=== PATIENT | male | born 1945 | race Caucasian/White ===

== ENCOUNTER 2017-11-17 20:12 | Inpatient (IN) ==
[2017-11-17] MEDS ORDERED: 0.9 % Sodium Chloride 1,000 ML IVC ONE (20:18)
--- NOTE | 2017-11-17 20:26 | Emergency Department Note ---
Disposition Clinical Impression: Diabetic infection of right foot Fever Qualifiers: Fever type: unspecified Qualified Code(s): R50.9 - Fever, unspecified Disposition: Admitted As Inpatient Referrals: Mathieu Myers MD [Primary Care Provider] - Forms: ED Satisfaction Letter Time of Disposition: 00:31 General Adult HPI - General Chief complaint: ED Neuro Symptoms/Deficit Stated complaint: Stroke alert Time Seen by Provider: 11/17/17 20:18 Source: patient, EMS Limitations: no limitations - History of Present Illness HPI Narrative: This is a 72-year-old male brought in by EMS because of confusion and possible episode of slurred speech that began about 4 hours prior to arrival and possible right-sided weakness. On arrival, he appears alert at least name and age, although is confused with more complicated questions. Pain Scale: 0 - Related Data Home Medications Medication Instructions Recorded Confirmed Exenatide [Byetta] 10 mcg SQ BID 02/28/15 11/18/17 Fenofibrate Nanocrystallized 145 mg PO DAILY 02/28/15 11/18/17 [Tricor] Gabapentin [Neurontin] 300 mg PO TID PRN 02/28/15 11/18/17 Insulin ASPART [NovoLOG] 12 unit SQ TIDWM 02/28/15 11/18/17 Insulin Glargine [Lantus] 60 unit SQ HS 02/28/15 11/18/17 Metformin HCl [Glucophage Xr] 1,500 mg PO QPM 02/28/15 11/18/17 Quinapril HCl [Accupril] 20 mg PO DAILY 02/28/15 11/18/17 Oxycodone HCl/Acetaminophen 1 each PO Q4H PRN 06/15/16 11/18/17 [Percocet 5-325 mg Tablet] Allergies Allergy/AdvReac Type Severity Reaction Status Date / Time gentamicin Allergy See Verified 08/01/15 18:43 Comments venom-honey bee Allergy Anaphylaxis Verified 02/02/15 12:19 [bee venom (honey bee)] All systems ED: reviewed and negative except as stated. Neurological: Reports: weakness, confusion, other (Possible dysarthria) Past Medical History - Past Medical History Medical history: Reports: cancer, diabetes Surgical history: Reports: other Psychiatric history: Reports: no psych history - Social History Smoking Status: Never smoker Smokeless Tobacco Status: No Alcohol use: Reports: rarely, occasionally Drug use: Reports: none Physical Exam - General Limitations: no limitations General appearance: alert, in no apparent distress - Head Head exam: atraumatic, normocephalic, normal inspection - Eye Eye exam: Present: normal appearance, PERRL, EOMI. Absent: scleral icterus, conjunctival injection - Neck Neck exam: Present: normal inspection, full ROM - Chest Chest inspection: Present: normal inspection, symmetric chest wall rise - Respiratory Respiratory exam: Present: normal lung sounds bilaterally. Absent: respiratory distress, wheezes, accessory muscle use, prolonged expiratory phase - Cardiovascular Cardiovascular exam: Present: regular rate, normal rhythm, normal heart sounds - Abdominal Exam Abdominal exam: Present: soft, Non-Tender. Absent: tenderness, distention, guarding, rebound, rigidity - Extremities Exam Extremities exam: Present: normal inspection, normal capillary refill. Absent: tenderness, pedal edema - Neurological Exam Neurological exam: Present: alert, CN II-XII intact, motor sensory deficit ( There is strength of 4 out of 5 for plantar and dorsiflexion of the right foot compared to the left at 5 out of 5; there is equal handgrip, and equal strength for flexion extension at the shoulders, elbows, and hips; no facial asymmetry) - Expanded Neurological Exam Patient oriented to: Present: person, place, time Speech: Present: fluid speech. Absent: receptive aphasia, expressive aphasia Cranial nerves: EOM function (II, III, IV, ): Normal, facial sensation (V): Normal, facial palsy (VII): Normal, gag reflex (IX): Normal, spinal accessory function (XI): Normal, tongue deviation (XII): Normal Motor strength - LUE: 5/5 Motor strength - RUE: 5/5 Motor strength - LLE: 5/5 Motor strength - RLE: 4/5 Coma Scale Eye Opening: Spontaneous Coma Scale Motor Response: Obeys Commands Coma Scale Verbal Response: Oriented Coma Scale Total: 15 - Psychiatric Psychiatric exam: Present: normal affect - Skin Skin exam: Present: warm, dry, intact, normal color Course Course Narrative: This is a 9-year-old male with confusion and what may be a new right lower leg weakness but also with a fever of 103.3. Vital Signs Temperature 103.3 F H 11/17/17 20:14 Pulse Rate 94 11/17/17 20:14 Respiratory Rate 18 10/05/18 20:14 Blood Pressure 146/76 11/17/17 20:14 O2 Sat by Pulse Oximetry 95 11/17/17 20:14 Temperature 100.3 F H 11/17/17 23:58 Pulse Rate 86 11/17/17 23:58 Respiratory Rate 16 11/17/17 23:58 Blood Pressure 138/71 11/17/17 23:58 O2 Sat by Pulse Oximetry 95 11/17/17 23:58 Oxygen Delivery Oxygen Delivery Room Air Medical Decision Making - MDM Narrative Medical decision making narrative: This is a 72-year-old male who comes to emergency department with fever and a level of confusion. The confusion has resolved with treatment of his fever. His temperature has dropped from 103.3 down to 100.3. Because of a chronic ulcer at the right ankle, likely a diabetic foot infection, he was started on antimicrobial treatment using vancomycin and piperacillin/tazobactam. I discussed his case with the on-call hospitalist, who accepted him for admission - Lab Data Lab results reviewed: Yes I reviewed the patient's lab results. Lab results narrative: CBC shows leukocytosis at 16.9 with anemia at 11.9 and 35.3 BMP shows slight hyponatremia at 133, albumin slightly elevated at 26 LFT was unremarkable Troponin was low INR was normal at 0.1 Ethanol was low Result diagrams: 11/17/17 20:51 11/17/17 20:51 Lab Results 11/17/17 11/17/17 11/17/17 Range/Units 20:51 20:51 20:51 WBC 16.9 H (4.3-11.1) K/mcL RBC 4.05 L (4.19-5.50) M/mcL Hgb 11.9 L (12.9-16.9) g/dL Hct 35.3 L (37.5-50.1) % MCV 87.2 (83.0-100.0) fL MCH 29.4 (28.0-33.3) pg MCHC 33.7 (31.6-35.5) g/dL RDW 13.2 (11.5-14.5) % Plt Count 237 (140-400) K/mcL MPV 9.4 (9.4-12.4) fL Immature Gran % 0.6 (0-4) % Seg Neutrophils % 89.9 % Lymphocytes % 4.2 % Monocytes % 5.1 % Eosinophils % 0.1 % Basophils % 0.1 % Neutrophils # 15.2 H (1.6-8.9) K/mcL Lymphocytes # 0.7 (0.6-4.6) K/mcL Monocytes # 0.9 (0.0-1.3) K/mcL Eosinophils # 0.0 (0.0-0.6) K/mcL Basophils # 0.0 (0.0-0.2) K/mcL PT 12.9 H (9.4-12.1) Seconds INR 1.1 Sodium 133 L (136-145) mEq/L Potassium 5.0 (3.5-5.1) mEq/L Chloride 100 (98-107) mEq/L Carbon Dioxide 26 (23-29) mEq/L BUN 26 H (8-23) mg/dL Creatinine 1.10 (0.70-1.30) mg/dL Est GFR ( Amer) > 60 (> 60) Est GFR (Non-Af Amer) > 60 (> 60) BUN/Creatinine Ratio 24 (6-26) Glucose 206 H (70-105) mg/dL Calculated Osmolality 287 (280-300) Lactic Acid (0.5-2.2) mmol/L Calcium 9.6 (8.6-10.3) mg/dL Total Bilirubin 0.4 (0.3-1.0) mg/dL Direct Bilirubin 0.1 (0.0-0.2) mg/dL Indirect Bilirubin 0.3 (0.0-1.2) mg/dL AST 12 L (13-39) Units/L ALT 7 (7-52) Units/L Alkaline Phosphatase 57 (34-104) Units/L Troponin I < 0.03 (< 0.04) ng/mL Serum Total Protein 7.6 (6.4-8.9) g/dL Albumin 4.2 (3.5-5.7) g/dL Globulin 3.4 (2.4-3.5) g/dL Albumin/Globulin Ratio 1.2 (1.1-2.2) Urine Color (Yellow) Urine Clarity (Clear) Urine pH (5.0-8.0) pH Units Ur Specific Verner (1.010-1.025) Urine Protein (Neg-Trace) mg/dL Urine Glucose (UA) (Normal) mg/dL Urine Ketones (Negative) mg/dL Urine Blood (Negative) Urine Nitrite (Negative) Urine Bilirubin (Negative) Urine Urobilinogen (Normal) mg/dL Ur Leukocyte Esterase (Negative) Urine Microscopic RBC (0-3) per hpf Urine Microscopic WBC (0-3) per hpf Ur Squamous Epith Cells (None-Few) per lpf Urine Bacteria (None-Few) per hpf Hyaline Casts (None-Few) per lpf Ur Culture Indicated? (NO) Urine Opiates Screen (Enocyz=360) ng/mL Ur Barbiturates Screen (Vuktdh=629) ng/mL Ur Phencyclidine Scrn (Cutoff=25) ng/mL Ur Amphetamines Screen (Vxltkw=7524) ng/mL U Benzodiazepines Scrn (Beedqf=994) ng/mL Urine Cocaine Screen (Cutoff= 300) ng/mL U Marijuana (THC) Screen (Cutoff = 50) ng/mL Ur Drug Screen Interp Ethyl Alcohol < 10 (Less than 10) mg/dL 11/17/17 11/17/17 11/17/17 Range/Units 20:54 22:01 22:04 WBC (4.3-11.1) K/mcL RBC (4.19-5.50) M/mcL Hgb (12.9-16.9) g/dL Hct (37.5-50.1) % MCV (83.0-100.0) fL MCH (28.0-33.3) pg MCHC (31.6-35.5) g/dL RDW (11.5-14.5) % Plt Count (140-400) K/mcL MPV (9.4-12.4) fL Immature Gran % (0-4) % Seg Neutrophils % % Lymphocytes % % Monocytes % % Eosinophils % % Basophils % % Neutrophils # (1.6-8.9) K/mcL Lymphocytes # (0.6-4.6) K/mcL Monocytes # (0.0-1.3) K/mcL Eosinophils # (0.0-0.6) K/mcL Basophils # (0.0-0.2) K/mcL PT (9.4-12.1) Seconds INR Sodium (136-145) mEq/L Potassium (3.5-5.1) mEq/L Chloride (98-107) mEq/L Carbon Dioxide (23-29) mEq/L BUN (8-23) mg/dL Creatinine (0.70-1.30) mg/dL Est GFR ( Amer) (> 60) Est GFR (Non-Af Amer) (> 60) BUN/Creatinine Ratio (6-26) Glucose (70-105) mg/dL Calculated Osmolality (280-300) Lactic Acid 1.1 (0.5-2.2) mmol/L Calcium (8.6-10.3) mg/dL Total Bilirubin (0.3-1.0) mg/dL Direct Bilirubin (0.0-0.2) mg/dL Indirect Bilirubin (0.0-1.2) mg/dL AST (13-39) Units/L ALT (7-52) Units/L Alkaline Phosphatase (34-104) Units/L Troponin I (< 0.04) ng/mL Serum Total Protein (6.4-8.9) g/dL Albumin (3.5-5.7) g/dL Globulin (2.4-3.5) g/dL Albumin/Globulin Ratio (1.1-2.2) Urine Color Yellow (Yellow) Urine Clarity Clear (Clear) Urine pH 7.0 (5.0-8.0) pH Units Ur Specific Verner 1.010 (1.010-1.025) Urine Protein >=300 H (Neg-Trace) mg/dL Urine Glucose (UA) Normal (Normal) mg/dL Urine Ketones Negative (Negative) mg/dL Urine Blood Trace H (Negative) Urine Nitrite Negative (Negative) Urine Bilirubin Negative (Negative) Urine Urobilinogen Normal (Normal) mg/dL Ur Leukocyte Esterase Negative (Negative) Urine Microscopic RBC 5-15 H (0-3) per hpf Urine Microscopic WBC 0-3 (0-3) per hpf Ur Squamous Epith Cells Few (None-Few) per lpf Urine Bacteria None Seen (None-Few) per hpf Hyaline Casts None Seen (None-Few) per lpf Ur Culture Indicated? NO (NO) Urine Opiates Screen Positive H (Pftauf=461) ng/mL Ur Barbiturates Screen Negative (Iqqrkw=506) ng/mL Ur Phencyclidine Scrn Negative (Cutoff=25) ng/mL Ur Amphetamines Screen Negative (Ufxwrn=8837) ng/mL U Benzodiazepines Scrn Negative (Fvoqmf=101) ng/mL Urine Cocaine Screen Negative (Cutoff= 300) ng/mL U Marijuana (THC) Screen Negative (Cutoff = 50) ng/mL Ur Drug Screen Interp See Below Ethyl Alcohol (Less than 10) mg/dL - Radiology Data Radiology results reviewed: Yes I reviewed the patient's radiology results. Chest x-ray showed no acute process CT head showed no acute process CT chest/abdomen/pelvis was obtained to rule out an infectious process there, and was interpreted by radiology as showing none. - EKG Data EKG #1 EKG attestation: Yes I reviewed and interpreted this EKG. EKG results narrative: ECG shows sinus rhythm, 95 bpm, normal intervals, normal axis, right bundle branch block, normal ST and T waves Critical Care Time Critical Care Time: Yes Total Critical Care Time: 20 Attestation: 20 minutes of critical care time was invested independent of other separately billable procedures
[2017-11-17 21:16] LABS: Basophils % 0.1 %; Eosinophils % 0.1 %; Hematocrit 35.3 % (37.5-50.1); Hemoglobin 11.9 g/dL (12.9-16.9); Immature Granulocytes % 0.6 % (0-4); Lymphocytes # 0.7 K/mcL (0.6-4.6); Lymphocytes % 4.2 %; Mean Corpuscular HGB Conc 33.7 g/dL (31.6-35.5); Mean Corpuscular Hemoglobin 29.4 pg (28.0-33.3); Mean Corpuscular Volume 87.2 fL (83.0-100.0); Mean Platelet Volume 9.4 fL (9.4-12.4); Monocytes # 0.9 K/mcL (0.0-1.3); Monocytes % 5.1 %; Neutrophils # 15.2 K/mcL (1.6-8.9); Platelet Count 237 K/mcL (140-400); Red Blood Count 4.05 M/mcL (4.19-5.50); Red Cell Distribution Width 13.2 % (11.5-14.5); Segmented Neutrophils % 89.9 %
[2017-11-17 21:40] LABS: Alanine Aminotransferase 7 Units/L (7-52); Albumin 4.2 g/dL (3.5-5.7); Albumin/Globulin Ratio 1.2 (1.1-2.2); Alkaline Phosphatase 57 Units/L (34-104); Aspartate Amino Transferase 12 Units/L (13-39); BUN/Creatinine Ratio 24 (6-26); Bilirubin,Direct 0.1 mg/dL (0.0-0.2); Bilirubin,Indirect 0.3 mg/dL (0.0-1.2); Bilirubin,Total 0.4 mg/dL (0.3-1.0); Blood Urea Nitrogen 26 mg/dL (8-23); Calcium 9.6 mg/dL (8.6-10.3); Carbon Dioxide 26 mEq/L (23-29); Chloride 100 mEq/L (98-107); Ethanol < 10 mg/dL (Less than 10); Globulin 3.4 g/dL (2.4-3.5); Glucose 206 mg/dL (70-105); INR 1.1; Osmolality,Calculated 287 (280-300); Prothrombin Time 12.9 Seconds (9.4-12.1); Sodium 133 mEq/L (136-145); Total Protein 7.6 g/dL (6.4-8.9); Troponin I < 0.03 ng/mL (< 0.04); eGFR For Non-African Americans > 60 (> 60)
[2017-11-17 22:17] LABS: Bilirubin,Urine Negative (Negative); Blood,Urine Trace (Negative); Clarity,Urine Clear (Clear); Color,Urine Yellow (Yellow); Glucose,Urine (UA) Normal (Normal); Ketones,Urine Negative (Negative); Leukocyte Esterase,Urine Negative (Negative); Nitrite,Urine Negative (Negative); Protein,Urine >=300 mg/dL (Neg-Trace); Urobilinogen,Urine Normal (Normal)
[2017-11-17] MEDS ORDERED: Ketorolac 15 MG/ML VIAL IVP ONE (22:18)
[2017-11-17 22:19] LABS: Bacteria,Urine None Seen per hpf (None-Few); Hyaline Casts,Urine None Seen per lpf (None-Few); Squamous Epithelial Cell,Urine Few per lpf (None-Few); WBC,Urine 0-3 per hpf (0-3)
[2017-11-17 22:25] LABS: Amphetamine Screen,Urine Negative ng/mL (Cutoff=1000); Barbiturate Screen,Urine Negative ng/mL (Cutoff=200); Benzodiazepines Screen,Urine Negative ng/mL (Cutoff=200); Cannabinoid Screen,Urine Negative ng/mL (Cutoff = 50); Cocaine Screen,Urine Negative ng/mL (Cutoff= 300); Opiate Screen,Urine Positive ng/mL (Cutoff=300); Phencyclidine Screen,Urine Negative ng/mL (Cutoff=25)
[2017-11-17] MEDS ORDERED: Piperacillin/Tazobactam 3.375 GM in Water for inj. (sterile) 20 ML 20 ML IVP ONE (22:25)
[2017-11-18] MEDS ORDERED: Naloxone 0.4 MG/ML INJ IVP PRN (02:28)
[2017-11-18] MEDS ORDERED: Acetaminophen 325 MG TABLET PO PRN (02:28)
[2017-11-18] MEDS ORDERED: D5% in Water 1,000 ML IVC PRN (02:32)
[2017-11-18] MEDS ORDERED: Dextrose Gel 15 GM/37.5 ML TUBE PO PRN ×2 (02:32)
[2017-11-18] MEDS ORDERED: *HR* Dextrose 50 % in Water (Syg) 50 ML SYRINGE IVP PRN (02:32)
--- NOTE | 2017-11-18 02:52 | Internal Med History&Physical ---
<Jerry Thomas Cosme - Last Filed: 11/18/17 05:13> Date of Encounter: 11/18/17 Time of Encounter: 02:39 Internal Medicine - H&P: HPI Chief complaint: Altered Mental Status Admitted From: Emergency Dept Plans for Post Hospital Care: Home History of present illness: Mr. El is a 72 year old male with a past medical history of diabetes with chronic foot ulcer and hemangioma. He presented to the ED via EMS from home for altered mental status and fever. His called EMS because he did not know who he was and was slurring his speech. In the ED CT head, chest, and abdomen were negative for acute process. Chest xray was negative for acute process. EKG showed sinus rhythm with right bundle branch block. Labs revealed white count 16 , otherwise benign. Vitals significant for fever 105, other vitals within normal limits. Examination in the emergency department demonstrated minimal focal deficit and orientation labile. Patient was given Tylenol, fluids, vancomycin and Zosyn, blood cultures drawn. Later on my examination patient was neurologically intact without focal deficits and alert and oriented 3 and fever had resolved. Patient denies tobacco, alcohol, drug use. Patient also denies chest pain, shortness of breath, abdominal pain or nausea or vomiting, dysuria. Patient will be admitted for workup of altered mental status and fever. Past Med Surg Social Fam HX - Past Medical History Medical history: cancer, diabetes Additional medical history: emangioma at 17 years old Psychiatric history: no psych history - Past Surgical History Surgical History: other Additional surgical history: wound sx, r-foot at age 17 yrs - Social History Smoking Status: Never smoker Smokeless Tobacco Status: No Alcohol use: rarely, occasionally Drug use: none - Family History Mother Living Status: Hx Family Cancer: Yes (colon) Father Living Status: Internal Medicine - H&P: Meds Exenatide [Byetta] 10 mcg SQ BID 02/28/15 [History] Fenofibrate Nanocrystallized [Tricor] 145 mg PO DAILY 02/28/15 [History] Gabapentin [Neurontin] 300 mg PO TID PRN 02/28/15 [History] Insulin ASPART [NovoLOG] 12 unit SQ TIDWM 02/28/15 [History] Insulin Glargine [Lantus] 60 unit SQ HS 01/16/16 [History] Metformin HCl [Glucophage Xr] 1,500 mg PO QPM 02/28/15 [History] Quinapril HCl [Accupril] 20 mg PO DAILY 02/28/15 [History] Oxycodone HCl/Acetaminophen [Percocet 5-325 mg Tablet] 1 each PO Q4H PRN [History] 3 Allergy/AdvReac Type Severity Reaction Status Date / Time gentamicin Allergy See Verified 08/01/15 18:43 Comments venom-honey bee Allergy Anaphylaxis Verified 02/02/15 12:19 [bee venom (honey bee)] All Systems PM: A 10-system review of systems was performed and is negative for pertinent findings except as documented above in the HPI. - Constitutional Constitutional: fever(s), no chills - EENT Eyes: no change in vision - Cardiovascular Cardiovascular ROS IM: no chest pain, no dyspnea, no syncope - Respiratory Respiratory: no cough, no wheezing, no excessive phlegm production - Gastrointestinal Gastrointestinal: no abdominal pain, no diarrhea, no vomiting - Genitourinary Genitourinary ROS male: urinary incontinence, no dysuria - Musculoskeletal Musculoskeletal ROS IM: no muscle weakness - Integumentary Integumentary IM: non-healing lesions, no new lesions - Neurological Neurological ROS: confusion, focal weakness, headache(s), no abnormal speech - Psychiatric Psychiatric: confusion - Constitutional Vitals: Temp Pulse Resp BP Pulse Ox 100.3 F H 86 18 125/95 95 11/17/17 23:58 11/17/17 23:58 11/18/17 02:07 11/18/17 02:07 11/17/17 23:58 Exam: Patient in no acute distress, alert and oriented 3 Cranial nerves II through XII intact Motor 5 out of 5 in all 4 extremities Sensation intact equally bilaterally except for diminished sensation in the feet Heart in regular rate and rhythm without murmur or gallop Lungs clear to auscultation bilaterally without wheeze or rales or rhonchi Abdomen soft and minimally tender in right upper quadrant, normal bowel sounds present Bilateral lower extremities nonedematous, skin warm and dry There is a nonhealing arterial deficiency versus diabetic ulcer present on the medial aspect of the right hindfoot inferior to the medial malleolus and anterior to the Achilles tendon, measuring approximately 5 cm x 3 cm, without purulent drainage, induration, or surrounding erythema or edema or tenderness Internal Med - H&P Results - Labs CBC & Chem 7: 11/17/17 20:51 11/17/17 20:51 - Assessment and plan (1) Fever Current Visit: Yes Status: Acute Assessment and plan: Patient presented with fever, altered mental status, possible focal deficits CT head negative, CT chest negative, chest x-ray negative, abdominal CT negative EKG showed sinus rhythm normal rate with RBBB White count 16, temp 105, UA negative for infection, UDS noncontributory Patient has 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 Patient was given 1 L fluids, Tylenol, Vancomycin and Zosyn Fever and altered mental status and focal deficits resolved spontaneously Differentials include infected foot ulcer and encephalitis/meningitis Plan Treat foot ulcer/encephalitis empirically with Vancomycin, Rocephin, Acyclovir MRI Brain and Neurology Consult with request for lumbar puncture Continue to monitor for fever or neurological deficits Qualifiers: Fever type: unspecified Qualified Code(s): R50.9 - Fever, unspecified (2) Altered mental status Current Visit: Yes Status: Acute Assessment and plan: Patient was apparently altered before presenting to the emergency department Patient demonstrated complete resolution of altered mental status prior to admission Currently alert and oriented 3 without neurological deficits Rest of plan as seen above Qualifiers: Altered mental status type: disorientation Qualified Code(s): R41.0 - Disorientation, unspecified (3) Diabetes Current Visit: No Status: Chronic Assessment and plan: Patient has manager terminal history of chronic diabetes for which he uses insulin at home We will hold home medications Started 20 units basal insulin at night Low-dose sliding scale insulin corrective protocol Glucose currently stable, glucose checks before meals and at bedtime Continue to monitor Qualifiers: Diabetes mellitus type: type 2 Diabetes mellitus manager terminal insulin use: with manager terminal use Diabetes mellitus complication status: with skin complications Diabetes mellitus complication detail: with foot ulcer Qualified Code(s): E11.621 - Type 2 diabetes mellitus with foot ulcer; L97.509 - Non-pressure chronic ulcer of other part of unspecified foot with unspecified severity; Z79.4 - group home (current) use of insulin (4) DVT prophylaxis Current Visit: No Status: Acute Assessment and plan: This 5000 units subcutaneous heparin every 8 hours (5) Ulcer of foot, chronic Current Visit: Yes Status: Chronic Assessment and plan: Patient has a history of a chronic ulcer of the medial aspect of the right hindfoot on exam the wound does not exhibit significant evidence of infection Because of fever and white count we will empirically treat with vancomycin and Rocephin Rest of plan as seen above Qualifiers: Laterality: right Non-pressure ulcer stage: with fat layer exposed Qualified Code(s): L97.512 - Non-pressure 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 - Time Spent With Patient Total time spent is greater than 50% in coordination of care (as documented) at patient's floor/unit and/or counseling patient: <Javier Arita - Last Filed: 11/18/17 06:19> Date of Encounter: 11/18/17 Time of Encounter: 05:45 - Constitutional Constitutional: fever(s), no chills, no night sweats - EENT Eyes: no blurry vision, no change in vision Ears: no ear pain, no tinnitus Nose, mouth and throat: no nasal congestion, no sinus pressure, no sore throat - Cardiovascular Cardiovascular ROS IM: no chest pain, no dyspnea - Respiratory Respiratory: no cough, no chest congestion, no excessive phlegm production, no change in phlegm color - Gastrointestinal Gastrointestinal: no abdominal pain, no diarrhea, no hematemesis, no hematochezia, no melena, no vomiting - Genitourinary Genitourinary ROS male: no dysuria, no flank pain, no hematuria - Musculoskeletal Musculoskeletal ROS IM: arthralgias, back pain - Integumentary Integumentary IM: non-healing lesions - Neurological Neurological ROS: behavioral changes, confusion, headache(s), no numbness, no paresthesias - Psychiatric Psychiatric: no anxiety, no depression - Endocrine Endocrine IM: no polydipsia, no polyuria - Allergic/Immunologic Allergic/Immunologic: no wheezing, no GI upset with certain foods - Constitutional Vitals: Temp Pulse Resp BP Pulse Ox 98.3 F 67 15 132/78 97 11/18/17 03:05 11/18/17 03:05 11/18/17 03:05 11/18/17 03:05 11/18/17 03:05 General appearance: Present: cooperative, A&O X 3, pleasant, no acute distress Exam: no confusion or disorientation now - Head Head exam: Present: normal inspection - Eye Eye exam: Present: EOMI, PERRL. Absent: scleral icterus Pupils: Present: normal accommodation - ENT ENT exam: Present: mucous membranes dry, normal exam, normal oropharynx Additional comments: no appreciable oral lesions - Neck Neck exam general surgery: Present: full ROM, supple. Absent: tenderness, nuchal rigidity, thyromegaly - Respiratory Respiratory exam: Present: CTAB. Absent: rales, rhonchi, wheezes - Cardiovascular Cardiovascular exam: Present: +S1, +S2. Absent: diastolic murmur, systolic murmur - GI/Abdominal GI/Abdominal exam: Present: normal bowel sounds, soft. Absent: guarding, rebound, tenderness - Back Exam Back exam: Absent: CVA tenderness (L), CVA tenderness (R) - Neurological Exam Neurological exam: Present: alert, CN II-XII intact, oriented X3, no focal deficits, strengths equal and symetr throughout Additional comments: No nuchal rigidity; negative Kernig sign; negative Brudzinski sign Internal Med - H&P Results - Labs CBC & Chem 7: 11/18/17 05:20 11/17/17 20:51 Labs: Short CBC 11/18/17 Range/Units 05:20 WBC 16.7 H (4.3-11.1) K/mcL Hgb 10.6 L (12.9-16.9) g/dL Hct 32.4 L (37.5-50.1) % Plt Count 194 (140-400) K/mcL Neutrophils # 14.7 H (1.6-8.9) K/mcL - Assessment and plan (1) Altered mental status Current Visit: Yes Status: Acute Qualifiers: Altered mental status type: disorientation Qualified Code(s): R41.0 - Disorientation, unspecified (2) Diabetes Current Visit: No Status: Chronic Qualifiers: Diabetes mellitus type: type 2 Diabetes mellitus fpc insulin use: with fpc use Diabetes mellitus complication status: with skin complications Diabetes mellitus complication detail: with foot ulcer Qualified Code(s): E11.621 - Type 2 diabetes mellitus with foot ulcer; L97.509 - Non-pressure chronic ulcer of other part of unspecified foot with unspecified severity; Z79.4 - intermediate project manager (current) use of insulin (3) DVT prophylaxis Current Visit: No Status: Acute (4) Fever Current Visit: Yes Status: Acute Qualifiers: Fever type: unspecified Qualified Code(s): R50.9 - Fever, unspecified (5) Ulcer of foot, chronic Current Visit: Yes Status: Chronic Qualifiers: Laterality: right Non-pressure ulcer stage: with fat layer exposed Qualified Code(s): L97.512 - Non-pressure 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 - Time Spent With Patient Total time spent is greater than 50% in coordination of care (as documented) at patient's floor/unit and/or counseling patient: - Attending Attestation I discussed the patient RED DEVIL, past medical history, review of systems, lab data , imaging findings, and exam findings with Dr. Thomas. I then saw and examined patient independently as well. Patient had a fever up to 105 degrees Fahrenheit associated with behavioral change, altered mental status, confusion, hallucinations, and some reported combativeness in the ER. His fevers have defervesced, and he is back to his baseline state now. He is alert and oriented 3. He does not recall the above behavior but laughs at the fact that he was acting as such. Based upon history and exam, there is no focus for infection. His ulcer does not appear to be infected and appears to be a chronic wound ulcer slowly healing. He denies any neck pain, but he has had some headaches. He also had recent URI/bronchitis over last month. Given his febrile state, altered mental status, headache, and behavioral changes, I worry about encephalitis. He denies any prior history of oral herpes or oral cold sores. Nonetheless, I am going to start him empirically on acyclovir until we can proceed with further workup such as MRI and/or lumbar puncture. We will also ask neurology to see him in consultation. We will also continue empiric antibiotics for now and will follow blood cultures. Clinically, I do not feel he has meningitis whatsoever. Nonetheless, we will treat him with vancomycin and Rocephin to cover such organisms including his prior wound culture organisms from last year. Other than my comments above and noted physical exam findings, I agree with Dr. Thomas's assessment and plan.
[2017-11-18] MEDS ORDERED: Gadolinium Contrast Agent (WT Based) IV PRN (04:27)
[2017-11-18 05:44] LABS: Basophils % 0.1 %; Eosinophils % 0.1 %; Hematocrit 32.4 % (37.5-50.1); Hemoglobin 10.6 g/dL (12.9-16.9); Lymphocytes # 1.1 K/mcL (0.6-4.6); Lymphocytes % 6.4 %; Mean Corpuscular HGB Conc 32.7 g/dL (31.6-35.5); Mean Corpuscular Hemoglobin 28.7 pg (28.0-33.3); Mean Corpuscular Volume 87.8 fL (83.0-100.0); Mean Platelet Volume 9.4 fL (9.4-12.4); Monocytes # 0.8 K/mcL (0.0-1.3); Monocytes % 4.6 %; Neutrophils # 14.7 K/mcL (1.6-8.9); Platelet Count 194 K/mcL (140-400); Red Blood Count 3.69 M/mcL (4.19-5.50); Red Cell Distribution Width 13.2 % (11.5-14.5); Segmented Neutrophils % 87.8 %
[2017-11-18 06:10] LABS: BUN/Creatinine Ratio 23 (6-26); Blood Urea Nitrogen 28 mg/dL (8-23); Calcium 8.6 mg/dL (8.6-10.3); Carbon Dioxide 23 mEq/L (23-29); Chloride 104 mEq/L (98-107); Glucose 194 mg/dL (70-105); Osmolality,Calculated 287 (280-300); Potassium 4.6 mEq/L (3.5-5.1); Sodium 133 mEq/L (136-145); eGFR For Non-African Americans 58 (> 60)
[2017-11-18] MEDS: cefTRIAXone 2,000 MG in Water for inj. (sterile) 20 ML 20 ML IVPB SCH (06:41)
[2017-11-18] MEDS: *HR* Heparin 5,000 UNIT/ML VIAL SQ SCH ×3 (06:55→21:18)
[2017-11-18] MEDS ORDERED: *HR* LORazepam 2 MG/ML VIAL IVP STA (07:43)
[2017-11-18] MEDS ORDERED: Piperacillin/Tazobactam 3.375 GM in 0.9 % Sodium Chloride Mini Bag 100 ML IVPB SCH (08:00)
[2017-11-18] MEDS: Insulin LISPRO 300 UNITS/3 ML VIAL SQ SCH ×3 (08:13→16:19)
[2017-11-18] MEDS: Acyclovir 750 MG in D5% in Water 250 ML IVPB SCH ×2 (09:45→16:18)
--- NOTE | 2017-11-18 14:42 | Internal Med Progress Note ---
Hospitalist Progress Note - Encounter Date of Encounter: 11/18/17 Time of Encounter: 14:41 - Subjective Interval History: Patient stated that he is feeling back to his normal, patient is alert oriented 3, patient denies any neck stiffness, patient denies any motor or sensory changes. Patient denies any fever or chills since yesterday - Exam Vitals: Temp Pulse Resp BP Pulse Ox 98.8 F 65 18 121/58 98 11/18/17 11:36 11/18/17 11:36 11/18/17 11:36 11/18/17 11:36 11/18/17 11:36 Exam: Alert oriented 3, cranial nerves II-12 grossly intact no motor or sensory deficit - Assessment and Plan (1) Altered mental status Current Visit: Yes Status: Acute (2) Diabetes Current Visit: No Status: Chronic (3) DVT prophylaxis Current Visit: No Status: Acute (4) Fever Current Visit: Yes Status: Acute (5) Ulcer of foot, chronic Current Visit: Yes Status: Chronic - Summary of Assessment and Plan Summary of Assessment and Plan: Discussed with podiatry team, with the patient history of osteomyelitis in the past, we will check x-ray ankle and leg, continue current antibiotic, awaiting blood culture and wound culture, check CBC BMP next a.m., adjust insulin as needed, PTOT, MRI brain reviewed no evidence of CVA. CT scan chest abdomen and pelvis revealed no evidence of infection - Time Spent with Patient Total time spent is greater than 50% in coordination of care (as documented) at patient's floor/unit and/or counseling patient: Greater than 35 minutes Internal Medicine: Result - Labs CBC & Chem 7: 11/18/17 05:20 11/18/17 05:20 Labs: Short CBC 11/18/17 Range/Units 05:20 WBC 16.7 H (4.3-11.1) K/mcL Hgb 10.6 L (12.9-16.9) g/dL Hct 32.4 L (37.5-50.1) % Plt Count 194 (140-400) K/mcL Neutrophils # 14.7 H (1.6-8.9) K/mcL BMP 11/18/17 05:20 Sodium 133 L Potassium 4.6 Chloride 104 Carbon Dioxide 23 BUN 28 H Creatinine 1.23 Glucose 194 H Calcium 8.6 - ABG Interpretation ABG results: PT/INR, D-dimer PT 12.9 Seconds (9.4-12.1) H 11/17/17 20:51 - Impressions Impressions Brain MRI 11/18/17 05:45 IMPRESSION: No acute intracranial abnormality. Moderate cerebral white matter disease, progressed from 2016. D/ / Jarod Gardner MD / Jarod Gardner MD Interpreting Provider: Jarod Gardner MD Consult Discharge Plan - Plan Referrals: Mathieu Myers MD [Primary Care Provider] - Exam - Vital Signs Vital signs: Initial Vital Signs Temp Pulse Resp BP Pulse Ox 103.3 F H 94 18 146/76 95 11/17/17 20:14 11/17/17 20:14 11/17/17 20:14 11/17/17 20:14 11/17/17 20:14 Vital Signs - Last 8 Hours Temp Pulse Resp BP Pulse Ox 11/18/17 11:36 98.8 F 65 18 121/58 98 11/18/17 07:30 98.2 F 62 16 176/91 97 Intake and Output 11/17/17 11/18/17 11/18/17 23:59 07:59 15:59 Intake Total 500 / 500 265 / 265 Balance 500 / 500 265 / 265 Intake: IV Fluids 500 / 500 265 / 265 Zovirax 750 MG In Dextrose 5% 265 / 265 250 ML @ 250 mls/hr IVPB Q8HR [facility] Rx#:[id number] Vancocin 1,750 MG In 0.9 % 500 / 500 Sodium Chloride 500 ML @ 334. 014 mls/hr IVPB ONCE ONE Rx#: [id number] Other: Weight 111.3 kg Blood Glucose* 150 194 Patient Weight 11/18/17 23:59 Weight 111.3 kg EENT: mucous membranes moist Neck: no JVD, supple Respiratory: clear Cardiology: no murmurs, no rub, no gallops, normal S1, normal S2 Gastrointestinal: normoactive bowel sounds, no tenderness, no guarding, no organomegaly, no masses Integumentary: ulcer (Right dao of tibia) Neurologic: no focal deficit, no asterixis, alert and oriented x3, CN 3-12 intact Musculoskeletal: no erythema, no cyanosis, no clubbing (1) Altered mental status Qualifiers: Altered mental status type: disorientation Qualified Code(s): R41.0 - Disorientation, unspecified (2) Diabetes Qualifiers: Diabetes mellitus type: type 2 Diabetes mellitus termite treater insulin use: with termite treater use Diabetes mellitus complication status: with skin complications Diabetes mellitus complication detail: with foot ulcer Qualified Code(s): E11.621 - Type 2 diabetes mellitus with foot ulcer; L97.509 - Non-pressure chronic ulcer of other part of unspecified foot with unspecified severity; Z79.4 - care home (current) use of insulin (4) Fever Qualifiers: Fever type: unspecified Qualified Code(s): R50.9 - Fever, unspecified (5) Ulcer of foot, chronic Qualifiers: Laterality: right Non-pressure ulcer stage: with fat layer exposed Qualified Code(s): L97.512 - Non-pressure 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
--- NOTE | 2017-11-18 16:53 | Neurology - Consult Note ---
Date of Encounter: 11/18/17 Time of Encounter: 16:47 Assessment and Plan (1) Altered mental status Current Visit: Yes Status: Acute Patient presents with altered mental status that is now resolved. Upon admission he did have a temp of 105 and remained confused for about 3 hours or so. This confusion has now resolved and he is alert and oriented and is been talking on the phone to family members and friends. His blood pressure was also elevated so we could be dealing with something multifactorial. I am not however convinced of any specific primary neurologic etiology that explains this. There is no evidence of acute transient ischemic attack, and there is no evidence of a central nervous system infectious process. I recommend discontinuing acyclovir. No evidence to suspect seizure. Will reevaluate at your request. Qualifiers: Altered mental status type: disorientation Qualified Code(s): R41.0 - Disorientation, unspecified History of Present Illness HPI: Mr. El is a 72 year old male who was seen for neurologic consultation at the request of the hospitalist group secondary to brief moment of confusion. Patient now does not recall anything about it. However his identified some change in his mental status he was slurring his speech and was concerned and called EMS who brought him here to the hospital. Apparently upon arrival he had a fever and did have some confusion. Resolved. He has temporal 105 and did have an elevated white count at 16. However currently he is back to his normal baseline mental status. He denies any headache denies any numbness tingling or weakness of the face arms or legs. He denied headache. Denied any speech changes. Denies neck pain or stiffness. There is no evidence that he had evidence of seizure activity. There is no evidence to suggest stroke. MRI scan of the brain was done acutely and revealed no evidence of acute intracranial abnormality. Past Med Surg Social Fam HX - Past Medical History Medical history: cancer, diabetes Additional medical history: emangioma at 17 years old Psychiatric history: no psych history - Past Surgical History Surgical History: other Additional surgical history: wound sx, r-foot at age 17 yrs - Social History Smoking Status: Never smoker Smokeless Tobacco Status: No Alcohol use: rarely, occasionally Drug use: none - Family History Mother Age: 78 Family Member Ethnicity: Non- Living Status: Cause of : renal cancer Hx Family Cancer: Yes (colon) Father Family Member Ethnicity: Non- Living Status: Age at : 70 Cause of : chf Hx Family Cardiac Disorders: Yes (5xcabg, chf) Medications and Allergies Exenatide [Byetta] 10 mcg SQ BID 02/28/15 [History] Fenofibrate Nanocrystallized [Tricor] 145 mg PO DAILY 02/28/15 [History] Gabapentin [Neurontin] 300 mg PO TID PRN 02/28/15 [History] Insulin ASPART [NovoLOG] 12 unit SQ TIDWM 02/28/15 [History] Insulin Glargine [Lantus] 60 unit SQ HS 02/28/15 [History] Metformin HCl [Glucophage Xr] 1,500 mg PO QPM 02/28/15 [History] Quinapril HCl [Accupril] 20 mg PO DAILY 02/28/15 [History] Oxycodone HCl/Acetaminophen [Percocet 5-325 mg Tablet] 1 each PO Q4H PRN [History] 3 Allergy/AdvReac Type Severity Reaction Status Date / Time gentamicin Allergy See Verified 08/01/15 18:43 Comments venom-honey bee Allergy Anaphylaxis Verified 02/02/15 12:19 [bee venom (honey bee)] All Systems: The remainder of the systems were reviewed and are negative Review of Systems: The balance of the systems review is negative. Physical Examination - Vital Signs Vital Signs: Initial Vital Signs Temp Pulse Resp BP Pulse Ox 103.3 F H 94 18 146/76 95 11/17/17 20:14 11/17/17 20:14 11/17/17 20:14 11/17/17 20:14 11/17/17 20:14 - Neurologic Motor examination - right side: 3/5: plantarflexion, 4/5: tibialis Anterior, toe extension (EHL), 5/5: deltoids, biceps, triceps, cycle touring guide, hip flexors, quadriceps Motor examination - left side: 5/5: deltoids, biceps, triceps, wrist flexion, wrist extension, hip flexors, cycle touring guide, quadriceps, tibialis Anterior, toe extension (EHL), plantarflexion Detailed sensory examination: other (Decreased sensation to pinprick distally) Reflex and gait examination: other (Deep tendon reflexes are diminished throughout.) Mental Status Examination: awake, alert, oriented to person, oriented to place, oriented to time, follows commands appropriately, answers questions appropriately, no agnosia, no aphasia, no aproxia Cranial nerve examination: PERRL, EOMI, visual townsend intact, corneal reflexes brisk symmetrically, sensory to face intact, mastication intact, no facial asymmetry is present, no dysarthria, hearing is intact symmetrically, soft palate elevates bilaterally upon phonation, gag reflex intact, flexes SCM and trapezius muscles symmetrically with full power, tongue protrudes midline, no atrophy or facial fasiculations present Cerebellar examination: no dysmetria Results - Laboratory Findings CBC and BMP: 11/18/17 05:20 11/18/17 05:20 Abnormal lab findings: Abnormal lab results WBC 16.7 K/mcL (4.3-11.1) H 11/18/17 05:20 RBC 3.69 M/mcL (4.19-5.50) L 11/18/17 05:20 Hgb 10.6 g/dL (12.9-16.9) L 11/18/17 05:20 Hct 32.4 % (37.5-50.1) L 11/18/17 05:20 Neutrophils # 14.7 K/mcL (1.6-8.9) H 11/18/17 05:20 PT 12.9 Seconds (9.4-12.1) H 11/17/17 20:51 Sodium 133 mEq/L (136-145) L 11/18/17 05:20 BUN 28 mg/dL (8-23) H 11/18/17 05:20 Est GFR (Non-Af Amer) 58 (> 60) L 11/18/17 05:20 Glucose 194 mg/dL (70-105) H 11/18/17 05:20 POC Glucose 227 mg/dL (70-99) H 11/17/17 20:15 AST 12 Units/L (13-39) L 11/17/17 20:51 Urine Protein >=300 mg/dL (Neg-Trace) H 11/17/17 22:01 Urine Blood Trace (Negative) H 11/17/17 22:01 Urine Microscopic RBC 5-15 per hpf (0-3) H 11/17/17 22:01 Urine Opiates Screen Positive ng/mL (Mnclvx=204) H 11/17/17 22:04 Consult Discharge Plan - Plan Referrals: Mathieu Myers MD [Primary Care Provider] -
[2017-11-18 17:24] LABS: Adenovirus Not Detected (Not Detect); Bordetella Pertussis Not Detected (Not Detect); Chlamydophila pneumoniae Not Detected (Not Detect); Coronavirus 229E Not Detected (Not Detect); Coronavirus HKU1 Not Detected (Not Detect); Coronavirus NL63 Not Detected (Not Detect); Coronavirus OC43 Not Detected (Not Detect); Human Metapneumovirus Not Detected (Not Detect); Human Rhinovirus/Enterovirus Not Detected (Not Detect); Influenza A Subtype 2009 H1 Not Detected (Not Detect); Influenza A Untypeable Not Detected (Not Detect); Influenza B Not Detected (Not Detect); Mycoplasma pneumoniae Not Detected (Not Detect); Parainfluenza Virus 1 Not Detected (Not Detect); Parainfluenza Virus 2 Not Detected (Not Detect); Parainfluenza Virus 3 Not Detected (Not Detect); Parainfluenza Virus 4 Not Detected (Not Detect); Respiratory Syncytial Virus Not Detected (Not Detect)
[2017-11-18] MEDS ORDERED: Insulin DETEMIR 100 UNIT/ML X5UNITS SQ SCH ×2 (21:00)
[2017-11-18] MEDS: Insulin DETEMIR 100 UNIT/ML X5UNITS SQ SCH (21:19)
[2017-11-19] MEDS: Acyclovir 750 MG in D5% in Water 250 ML IVPB SCH ×2 (00:10→08:57)
[2017-11-19] MEDS: cefTRIAXone 2,000 MG in Water for inj. (sterile) 20 ML 20 ML IVPB SCH (04:37)
[2017-11-19] MEDS: *HR* Heparin 5,000 UNIT/ML VIAL SQ SCH ×3 (04:38→21:32)
[2017-11-19] MEDS: Insulin DETEMIR 100 UNIT/ML X5UNITS SQ SCH ×3 (08:56→21:31)
[2017-11-19] MEDS: Insulin LISPRO 300 UNITS/3 ML VIAL SQ SCH ×3 (08:57→16:36)
--- NOTE | 2017-11-19 09:17 | Podiatry Consult Note ---
Date of Encounter: 11/19/17 Time of Encounter: 09:13 Assessment and Plan (1) Ulcer of foot, chronic Current visit: Yes Status: Chronic Patient with chronic ulcer of the right ankle. This is likely venous in nature. It appears stable. Leukocytosis and fevers could represent soft tissue or bone infection. ESR and CRP ordered today. Radiographs reviewed which showed no evidence of osteomyelitis. If WBC does not improve on IV antibiotics , we will consider MRI of the right ankle to evaluate for any evidence of deep infection. Continue with local wound care and IV antibiotics for now. Patient would prefer to follow up with Dr. Wyman in wound care center for routine local wound care until was planned skin graft with plastic surgery. Qualifiers: Laterality: right Non-pressure ulcer stage: with fat layer exposed Qualified Code(s): L97.512 - Non-pressure 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 History of Present Illness Chief complaint: ulcer HPI: Mr. El is a 72 year old male presenting with chronic right ankle ulceration. Patient reports that he has a five-year history of ulceration of the ankle that has been treated with local wound care at several institutions including [place], [facility], and in [place]. During his course of treatment, he states that he has been treated with 6 weeks of IV antibiotics for suspected bone infection. Patient reports that he has a scheduled appointment [facility] plastic surgery in the near future to discuss skin graft options for the chronic right ankle wound. He has been doing local wound care with hydrofera blue and believes the wound is stable. He reports that the mild redness around the wound is due to adhesives from the tape dressing he was putting on the wound. He denies nausea, vomiting, chills. He does report fevers. He is unsure what prompted his admission. He would still like to continue his plans of doing a skin graft, however, he would like to see Dr. Wyman wound care until his planned surgery. Past Med Surg Social Fam HX - Past Medical History Medical history: cancer, diabetes Additional medical history: emangioma at 17 years old Psychiatric history: no psych history - Past Surgical History Surgical History: other Additional surgical history: wound sx, r-foot at age 17 yrs - Social History Smoking Status: Never smoker Smokeless Tobacco Status: No Alcohol use: rarely, occasionally Drug use: none - Family History Mother Age: 78 Family Member Ethnicity: Non- Living Status: Cause of : renal cancer Hx Family Cancer: Yes (colon) Father Family Member Ethnicity: Non- Living Status: Age at : 72 Cause of : chf Hx Family Cardiac Disorders: Yes (5xcabg, chf) Medications and Allergies Exenatide [Byetta] 10 mcg SQ BID 02/28/15 [History] Fenofibrate Nanocrystallized [Tricor] 145 mg PO DAILY 02/28/15 [History] Gabapentin [Neurontin] 300 mg PO TID PRN 02/28/15 [History] Insulin ASPART [NovoLOG] 12 unit SQ TIDWM 02/28/15 [History] Insulin Glargine [Lantus] 60 unit SQ HS 02/28/15 [History] Metformin HCl [Glucophage Xr] 1,500 mg PO QPM 02/28/15 [History] Quinapril HCl [Accupril] 20 mg PO DAILY 02/28/15 [History] Oxycodone HCl/Acetaminophen [Percocet 5-325 mg Tablet] 1 each PO Q4H PRN [History] 3 Allergy/AdvReac Type Severity Reaction Status Date / Time gentamicin Allergy See Verified 08/01/15 18:43 Comments venom-honey bee Allergy Anaphylaxis Verified 02/02/15 12:19 [bee venom (honey bee)] All Systems Reviewed: The remainder of the systems were reviewed and are negative Physical Exam - Constitutional Vitals: Temp Pulse Resp BP Pulse Ox 97.9 F 60 15 172/78 95 11/19/17 07:52 11/19/17 07:52 11/19/17 07:52 11/19/17 07:52 11/19/17 07:52 Exam: Vascular: DP and PT 1+ bilateral. Capillary refill less than 3 seconds all digits. Skin temperature normal to the right ankle. Dermatology: Right medial ankle ulceration with mixed fibrotic and granular wound base. There is a hyperkeratotic rim. Mild erythema at the periwound skin but does not extend proximally. No tendon visible in the wound base. Wound does not probe to bone. There is mild serous drainage from the wound. Wound measurement 6.5cm 3.0cm x 0.2cm. Musculoskeletal: No gross osseous abnormality. Muscle strength normal. Neuro: Sensation grossly diminished bilateral. Results - Labs Result Diagrams: 10/06/18 05:20 11/18/17 05:20 Labs: Abnormal lab results WBC 16.7 K/mcL (4.3-11.1) H 11/18/17 05:20 RBC 3.69 M/mcL (4.19-5.50) L 11/18/17 05:20 Hgb 10.6 g/dL (12.9-16.9) L 11/18/17 05:20 Hct 32.4 % (37.5-50.1) L 11/18/17 05:20 Neutrophils # 14.7 K/mcL (1.6-8.9) H 11/18/17 05:20 PT 12.9 Seconds (9.4-12.1) H 11/17/17 20:51 Sodium 133 mEq/L (136-145) L 11/18/17 05:20 BUN 28 mg/dL (8-23) H 11/18/17 05:20 Est GFR (Non-Af Amer) 58 (> 60) L 11/18/17 05:20 Glucose 194 mg/dL (70-105) H 11/18/17 05:20 POC Glucose 150 mg/dL (70-99) H 11/18/17 07:36 AST 12 Units/L (13-39) L 11/17/17 20:51 Urine Protein >=300 mg/dL (Neg-Trace) H 11/17/17 22:01 Urine Blood Trace (Negative) H 11/17/17 22:01 Urine Microscopic RBC 5-15 per hpf (0-3) H 11/17/17 22:01 Urine Opiates Screen Positive ng/mL (Ogizrz=700) H 11/17/17 22:04 All other labs normal. Consult Discharge Plan - Plan Referrals: Mathieu Myers MD [Primary Care Provider] -
[2017-11-19 09:27] LABS: Basophils % 0.2 %; Eosinophils # 0.2 K/mcL (0.0-0.6); Eosinophils % 2.7 %; Hematocrit 32.5 % (37.5-50.1); Hemoglobin 10.9 g/dL (12.9-16.9); Immature Granulocytes % 0.5 % (0-4); Lymphocytes # 1.1 K/mcL (0.6-4.6); Mean Corpuscular HGB Conc 33.5 g/dL (31.6-35.5); Mean Corpuscular Hemoglobin 29.2 pg (28.0-33.3); Mean Corpuscular Volume 87.1 fL (83.0-100.0); Mean Platelet Volume 9.3 fL (9.4-12.4); Monocytes # 0.6 K/mcL (0.0-1.3); Monocytes % 9.6 %; Neutrophils # 4.7 K/mcL (1.6-8.9); Platelet Count 179 K/mcL (140-400); Red Blood Count 3.73 M/mcL (4.19-5.50); Red Cell Distribution Width 13.3 % (11.5-14.5)
[2017-11-19 09:54] LABS: BUN/Creatinine Ratio 20 (6-26); Blood Urea Nitrogen 20 mg/dL (8-23); C-Reactive Protein 105 mg/L (Less than 10); Calcium 8.6 mg/dL (8.6-10.3); Carbon Dioxide 22 mEq/L (23-29); Chloride 106 mEq/L (98-107); Glucose 272 mg/dL (70-105); Magnesium 1.7 mg/dL (1.6-2.6); Osmolality,Calculated 292 (280-300); Phosphorous 2.6 mg/dL (2.7-4.5); Potassium 4.3 mEq/L (3.5-5.1); Sodium 135 mEq/L (136-145); eGFR For Non-African Americans > 60 (> 60)
--- NOTE | 2017-11-19 13:42 | Internal Med Progress Note ---
Hospitalist Progress Note - Encounter Date of Encounter: 11/19/17 Time of Encounter: 11:40 - Subjective Interval History: Patient feels better, patient denies any cough, patient denies any dysuria or hematuria, patient denies any bowel movement since admission, patient denies any fever or chills, patient denies any confusion or headache, - Exam Vitals: Temp Pulse Resp BP Pulse Ox 98.1 F 64 15 148/69 96 11/19/17 11:58 11/19/17 11:58 11/19/17 11:58 11/19/17 11:58 11/19/17 11:58 Exam: Alert oriented 3, cranial nerves II-12 grossly intact no motor or sensory deficit at baseline - Assessment and Plan (1) Altered mental status Current Visit: Yes Status: Acute (2) Diabetes Current Visit: No Status: Chronic (3) DVT prophylaxis Current Visit: No Status: Acute (4) Fever Current Visit: Yes Status: Acute (5) Ulcer of foot, chronic Current Visit: Yes Status: Chronic - Summary of Assessment and Plan Summary of Assessment and Plan: We will increase that insulin dosing, no evidence of encephalitis or meningitis , possible metabolic encephalopathy, awaiting final results of the blood culture , we will discontinue cycle failure monitor for next 24-hour, continue vancomycin and ceftriaxone.. If patient continued to be afebrile and his blood culture is negative possible discharge in next 24-hour. May consider discharging patient on Augmentin, check MRSA screening, replace electrolytes, check CBC BMP next morning, ambulate counseling patient about ambulation waiting for his cane - Time Spent with Patient Total time spent is greater than 50% in coordination of care (as documented) at patient's floor/unit and/or counseling patient: Greater than 35 minutes Internal Medicine: Result - Labs CBC & Chem 7: 11/19/17 09:11 11/19/17 09:11 Labs: Short CBC 11/19/17 Range/Units 09:11 WBC 6.6 D (4.3-11.1) K/mcL Hgb 10.9 L (12.9-16.9) g/dL Hct 32.5 L (37.5-50.1) % Plt Count 179 (140-400) K/mcL Neutrophils # 4.7 (1.6-8.9) K/mcL BMP 11/19/17 09:11 Sodium 135 L Potassium 4.3 Chloride 106 Carbon Dioxide 22 L BUN 20 Creatinine 0.99 Glucose 272 H Calcium 8.6 - ABG Interpretation ABG results: PT/INR, D-dimer PT 12.9 Seconds (9.4-12.1) H 11/17/17 20:51 Consult Discharge Plan - Plan Referrals: Mathieu Myers MD [Primary Care Provider] - Exam - Vital Signs Vital signs: Initial Vital Signs Temp Pulse Resp BP Pulse Ox 103.3 F H 94 18 146/76 95 11/17/17 20:14 11/17/17 20:14 11/17/17 20:14 11/17/17 20:14 11/17/17 20:14 Vital Signs - Last 8 Hours Temp Pulse Resp BP Pulse Ox 11/19/17 11:58 98.1 F 64 15 148/69 96 11/19/17 07:52 97.9 F 60 15 172/78 95 Intake and Output 11/18/17 11/19/17 11/19/17 23:59 07:59 15:59 Intake Total 1025 / 1025 500 / 500 860 / 860 Output Total 1000 / 1000 500 / 500 1350 / 1350 Balance 25 / 25 0 / 0 -490 / -490 Intake: IV Fluids 785 / 785 500 / 500 Zovirax 750 MG In Dextrose 5% 265 / 265 250 / 250 250 ML @ 250 mls/hr IVPB Q8HR [facility] Rx#:[id number] Vancocin 1,250 MG In 0.9 % 250 / 250 Sodium Chloride 250 ML @ 166. 667 mls/hr IVPB Q12H [facility] Rx#: [id number] Vancocin 1,750 MG In 0.9 % 500 / 500 Sodium Chloride 500 ML @ 334. 014 mls/hr IVPB 1100 [facility] Rx#: [id number] Rocephin 2,000 MG In Water for 20 / 20 inj. (sterile) 20 ML @ 600 mls/ hr IVPB Q24H [facility] Rx#:[id number] Oral 240 / 240 0 / 0 860 / 860 Output: Urine 1000 / 1000 500 / 500 1350 / 1350 Other: Meal Dinner Lunch Percent of Meal Consumed 100% 100% # Urine Diapers 1 2 Weight 111.5 kg Blood Glucose* 163 148 230 Patient Weight 11/19/17 23:59 Weight 111.5 kg - General Appearance General appearance: well-developed, well-nourished, obese EENT: mucous membranes moist, hearing intact Neck: no JVD, no thyromegaly Respiratory: clear Cardiology: mid-systolic murmur, no rub, no gallops, no edema, regular rate, regular rhythm, normal S1, normal S2 Gastrointestinal: no tenderness, no guarding, no organomegaly, obese Integumentary: warm and dry (Chronic ulcer right ankle medially) Neurologic: no focal deficit, no asterixis, alert and oriented x3, reflexes 2+ and symmetric, gait normal, strength 5/5 Musculoskeletal: no deformities, no erythema, no cyanosis, no clubbing (1) Altered mental status Qualifiers: Altered mental status type: disorientation Qualified Code(s): R41.0 - Disorientation, unspecified (2) Diabetes Qualifiers: Diabetes mellitus type: type 2 Diabetes mellitus manager intermediate insulin use: with manager intermediate use Diabetes mellitus complication status: with skin complications Diabetes mellitus complication detail: with foot ulcer Qualified Code(s): E11.621 - Type 2 diabetes mellitus with foot ulcer; L97.509 - Non-pressure chronic ulcer of other part of unspecified foot with unspecified severity; Z79.4 - manager intermediate (current) use of insulin (4) Fever Qualifiers: Fever type: unspecified Qualified Code(s): R50.9 - Fever, unspecified (5) Ulcer of foot, chronic Qualifiers: Laterality: right Non-pressure ulcer stage: with fat layer exposed Qualified Code(s): L97.512 - Non-pressure 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
[2017-11-20] MEDS ORDERED: Gabapentin 300 MG CAPSULE PO PRN (00:03)
[2017-11-20] MEDS: *HR* Heparin 5,000 UNIT/ML VIAL SQ SCH ×2 (05:27→12:35)
[2017-11-20] MEDS: cefTRIAXone 2,000 MG in Water for inj. (sterile) 20 ML 20 ML IVPB SCH (05:28)
[2017-11-20 05:39] LABS: Basophils % 0.1 %; Eosinophils # 0.1 K/mcL (0.0-0.6); Eosinophils % 0.9 %; Hematocrit 34.2 % (37.5-50.1); Hemoglobin 11.2 g/dL (12.9-16.9); Immature Granulocytes % 0.4 % (0-4); Lymphocytes # 1.3 K/mcL (0.6-4.6); Lymphocytes % 16.5 %; Mean Corpuscular HGB Conc 32.7 g/dL (31.6-35.5); Mean Corpuscular Hemoglobin 28.7 pg (28.0-33.3); Mean Corpuscular Volume 87.7 fL (83.0-100.0); Mean Platelet Volume 9.7 fL (9.4-12.4); Monocytes # 0.7 K/mcL (0.0-1.3); Monocytes % 8.4 %; Neutrophils # 5.9 K/mcL (1.6-8.9); Platelet Count 169 K/mcL (140-400); Red Cell Distribution Width 13.2 % (11.5-14.5); Segmented Neutrophils % 73.7 %
[2017-11-20 06:06] LABS: BUN/Creatinine Ratio 22 (6-26); Blood Urea Nitrogen 19 mg/dL (8-23); Carbon Dioxide 23 mEq/L (23-29); Chloride 105 mEq/L (98-107); Glucose 211 mg/dL (70-105); Osmolality,Calculated 291 (280-300); Phosphorous 3.1 mg/dL (2.7-4.5); Sodium 136 mEq/L (136-145); eGFR For Non-African Americans > 60 (> 60)
[2017-11-20 07:44] VITALS: BP 160/73
[2017-11-20] MEDS: Insulin LISPRO 300 UNITS/3 ML VIAL SQ SCH ×2 (08:42→12:35)
[2017-11-20] MEDS: Insulin DETEMIR 100 UNIT/ML X5UNITS SQ SCH (08:43)
[2017-11-20] MEDS ORDERED: Lisinopril 20 MG TABLET PO SCH (09:00)
[2017-11-20] MEDS ORDERED: Fenofibrate 54 MG TABLET PO SCH (09:00)
--- NOTE | 2017-11-20 10:47 | Discharge Summary ---
- NOTES TO OUTPATIENT PROVIDER Notes to Outpatient Provider: Pt will be following up with wound care after discharge per his request. Date of Encounter: 11/20/17 Time of Encounter: 09:15 - Discharge Diagnosis (1) Altered mental status Priority: Primary Status: Resolved Assessment and Plan: Patient was apparently altered before presenting to the emergency department Patient demonstrated complete resolution of altered mental status prior to admission Currently alert and oriented 3 without neurological deficits Rest of plan as seen above 11/20- patient is at his baseline. He has a prior history of short-term memory loss due to remote IV antibiotic use for osteomyelitis. Patient is able to answer questions appropriately, though slowly. He states this is his normal. Qualifiers: Altered mental status type: disorientation Qualified Code(s): R41.0 - Disorientation, unspecified (2) Diabetes Priority: Secondary Status: Chronic Assessment and Plan: Chronic. Continue home medications after discharge. Qualifiers: Diabetes mellitus type: type 2 Diabetes mellitus residential insulin use: with exterminator use Diabetes mellitus complication status: with skin complications Diabetes mellitus complication detail: with foot ulcer Qualified Code(s): E11.621 - Type 2 diabetes mellitus with foot ulcer; L97.509 - Non-pressure chronic ulcer of other part of unspecified foot with unspecified severity; Z79.4 - terminal operations supervisor (current) use of insulin (3) DVT prophylaxis Priority: Secondary Status: Acute Assessment and Plan: Heparin subcutaneous 3 times a day (4) Fever Priority: Secondary Status: Resolved Assessment and Plan: Patient presented with fever, altered mental status, possible focal deficits CT head negative, CT chest negative, chest x-ray negative, abdominal CT negative EKG showed sinus rhythm normal rate with RBBB White count 16, temp 105, UA negative for infection, UDS noncontributory Patient has 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 Unclear etiology for fever. I did speak with dietary he does not feel that patient's foot wound is infected. CT head and chest both negative, chest x-ray is negative, abdominal CT is negative. Urine was negative, respiratory infectious panel was negative. Brain MRI is negative. Patient will be sent home on 5 days of Augmentin and will follow up with wound care in 2-3 weeks. Patient was treated with vancomycin and Rocephin while admitted. Patient has returned to his baseline mentation. Fever has resolved and patient is stable for discharge. P Qualifiers: Fever type: unspecified Qualified Code(s): R50.9 - Fever, unspecified (5) Ulcer of foot, chronic Priority: Secondary Status: Chronic Assessment and Plan: Patient has a history of a chronic ulcer of the medial aspect of the right hindfoot on exam the wound does not exhibit significant evidence of infection Because of fever and white count we will empirically treat with vancomycin and Rocephin and patient will be discharged with Augmentin twice a day 5 days. He is no signs of sirs or sepsis. White count has resolved, patient has been afebrile for greater than 48 hours. He will follow-up with wound care in 2-3 weeks, primary nurse is scheduling appointment. Rest of plan as seen above Qualifiers: Laterality: right Non-pressure ulcer stage: with fat layer exposed Qualified Code(s): L97.512 - Non-pressure 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 Hospital course: Mr. El is a 72 year old male with past medical history of hypertension, diabetes, lipidemia, chronic right foot ulcer, peripheral vascular disease, right ankle osteomyelitis. She presented to the emergency department after having altered mental status and fever at home. All symptoms had resolved by the time he reached the emergency department. He was admitted and treated with vancomycin and Rocephin for a chronic right foot ulcer. Prior history of osteomyelitis in the foot. He has been evaluated by podiatry does not feel that the foot looks infected. His leukocytosis and fever have resolved. He has been afebrile and with normal white count for 48 hours. Patient will follow up with wound care after discharge and will be discharged with a prescription for Augmentin 875 mg by mouth twice daily for 5 days. His labs and vitals are stable and within normal limits. He is appropriate for discharge. - Time Spent with Patient Total time spent providing and/or coordinating discharge services: - Discharge Medications Prescriptions: Amoxicillin/Clavulanate [Augmentin] 875 mg PO BIDWM #10 tablet Home Medications: Exenatide [Byetta] 10 mcg SQ BID 02/28/15 [History] Gabapentin [Neurontin] 300 mg PO TID PRN 02/28/15 [History] Insulin ASPART [NovoLOG] 12 unit SQ TIDWM 02/28/15 [History] Insulin Glargine [Lantus] 60 unit SQ HS 02/28/15 [History] Metformin HCl [Glucophage Xr] 1,500 mg PO QPM 02/28/15 [History] Quinapril HCl [Accupril] 20 mg PO DAILY 02/28/15 [History] Oxycodone HCl/Acetaminophen [Percocet 5-325 mg Tablet] 1 each PO Q4H PRN [History] Amoxicillin/Clavulanate [Augmentin] 875 mg PO BIDWM #10 tablet 11/20/17 [Rx] Fenofibrate [Tricor] 162 mg PO DAILY tablet 11/20/17 [Rx] Allergies/Adverse Reactions: 3 Allergy/AdvReac Type Severity Reaction Status Date / Time gentamicin Allergy See Verified 08/01/15 18:43 Comments venom-honey bee Allergy Anaphylaxis Verified 02/02/15 12:19 [bee venom (honey bee)] Date of admission: 11/18/17 14:58 Primary care physician: Mathieu Myers MD Consults: 11/19/17 13:46 Consult to Occupational Therapy [CONS] Routine Comment: Evaluate, develop and implement POC Reason for Consult: Physical deconditioning due to recent fall Does patient have active BEDREST order?: No Is patient medically & hemodynamically stable?: Yes Patient assessed for mobility or mobilized this visit?: Yes Consult to Physical Therapy [CONS] Routine Comment: Evaluate, develop and implement POC Reason for Consult: Physical deconditioning Does patient have active BEDREST order?: No Is patient medically & hemodynamically stable?: Yes Patient assessed for mobility or mobilized this visit?: Yes Discharging clinician: Tayla Balderas Anticipated date of discharge: 11/20/17 - Constitutional Vitals: Temp Pulse Resp BP Pulse Ox 97.6 F 53 16 160/73 96 11/20/17 07:41 11/20/17 07:41 11/20/17 07:41 11/20/17 07:41 11/20/17 07:41 General appearance: Present: cooperative, A&O X 3, pleasant, no acute distress Exam: As above - Head Head exam: Present: atraumatic, normal inspection, normocephalic - Eye Eye exam: Present: EOMI, normal appearance, conjuntiva pink, sclera anicteric - Neck Neck exam general surgery: Present: supple, trachea midline. Absent: lymphadenopathy, tenderness - Respiratory Respiratory exam: Present: CTAB. Absent: accessory muscle use, chest wall tenderness, rales, rhonchi, wheezes - Cardiovascular Cardiovascular exam: Present: RRR, +S1, +S2. Absent: diastolic murmur, gallop, rubs, systolic murmur - GI/Abdominal GI/Abdominal exam: Present: normal bowel sounds, soft, no peritoneal signs. Absent: distended, tenderness - Extremities Exam Extremities exam: Present: warm, radial pulses palpable and symmetrical. Absent : calf tenderness, cyanotic, full ROM, normal capillary refill, normal inspection, pedal edema - Expanded Lower Extremities Exam Foot/Toe exam: Present: tenderness - Back Exam Back exam: Present: normal inspection. Absent: tenderness - Neurological Exam Neurological exam: Present: alert, altered, oriented X3, no focal deficits. Absent: facial droop, speech deficit Additional comments: Patient is at his normal baseline mentation. - Skin Skin exam: Present: dry, intact, normal color, warm. Absent: rash - Patient Status Disposition: Home, Self-Care Condition: Good Functional capacity at discharge: uses cane/walker Overall status at discharge: patient is progressing back to baseline - Discharge Instructions Follow Up With: Mathieu Myers MD [Primary Care Provider] - Additional Instructions: Follow up with your PCP in the next 3-5 days for a recheck. Follow-up with wound care in the next 2-3 weeks as scheduled. Take your medications as directed. Your new prescription has been called into [facility] pharmacy. Return to the ER as needed for any other problems or concerns, or if your symptoms return or worsen. Resume your normal medications and return to your normal diet and activties as tolerated. - Diet and Activity Activity: increase activity as tolerated Diet: diabetic diet
[2017-11-20] MEDS ORDERED: Aminoglycoside Consult 1 EACH MC ONE (15:17)
--- NOTE | 2017-11-20 16:57 | Electrocardiograph Report ---
[address] [place], [place] [address] Test Date: 2017-11-17 Pat Name: José El Department: [id number] Room: 3A11 Gender: M Primary Clinician: : [id number] Requested By: Neno Rendon Order Number: [id number] Reading MD: Dutch Bryant Measurements Intervals [place] Rate: 95 P: 2 LA: 164 QRS: -106 QRSD: 148 T: 23 QT: 358 QTc: 450 Interpretive Statements Sinus rhythm RBBB and LAFB Electronically Signed On 11-20-2017 16:55:43 EDT by Dutch Bryant
== END 2017-11-20 15:18 | disposition home or self-care (01) | DRG 637 ==
LOC: 3ANU 20:12 → EMEROOARM 20:12 → 3ANU 11-18 02:55
PROVIDERS: ADMIT Pediatrics; ATTEND Pediatrics

== ENCOUNTER 2019-02-18 14:07 | Inpatient (IN) ==
[2019-02-18] MEDS ORDERED: CeFAZolin Syr 2,000MG/20 ML 2,000 MG/20 ML SYRINGE IVPB ONE (14:22)
[2019-02-18] MEDS ORDERED: Ringers Solution, Lactated 1,000 ML IVC SCH ×2 (14:30→15:00)
[2019-02-18] MEDS ORDERED: *HR* OxyCODONE Immed Rel 5 MG TABLET PO PRN (14:49)
[2019-02-18] MEDS ORDERED: *HR* Promethazine 25 MG/ML VIAL IVP PRN (14:49)
[2019-02-18] MEDS ORDERED: Lidocaine/EPI 1:100k 1% 20 ML VIAL ONE (15:30)
[2019-02-18] MEDS ORDERED: *HR* Heparin 5,000 UNIT/ML VIAL ONE (15:31)
[2019-02-18] MEDS ORDERED: Heparin 1,000 UNITS/500 mL 500 ML ONE (15:31)
[2019-02-18] MEDS ORDERED: Lidocaine -MPF 4% 5 ML AMPUL ONE (15:52)
[2019-02-18] MEDS ORDERED: *HR* Succinylcholine 200 MG/10 ML VIAL IVP ONE (15:52)
[2019-02-18] MEDS ORDERED: Lidocaine -MPF 2% 2 ML VIAL ONE (15:52)
[2019-02-18] MEDS ORDERED: Ondansetron 4 MG/2 ML VIAL ONE (15:52)
[2019-02-18] MEDS ORDERED: *HR* Propofol 200 MG/20 ML VIAL IVP ONE (15:55)
[2019-02-18] MEDS ORDERED: *HR* FentaNYL (PF) 100 MCG/2 ML VIAL ONE ×2 (15:56→17:33)
[2019-02-18] MEDS ORDERED: *HR* PHENYLEPHRINE 1,000 MCG/10 ML SYRINGE IVP ONE (16:36)
[2019-02-18] MEDS ORDERED: *HR* Rocuronium Bromide 50 MG/5 ML VIAL ONE (17:30)
[2019-02-18] MEDS ORDERED: Bupivacaine/EPI 1:200k 0.5%PF 30 ML VIAL ONE (17:49)
[2019-02-18] MEDS ORDERED: Neostigmine Methylsulfate 3 MG/3 ML SYRINGE ONE (19:06)
[2019-02-18] MEDS ORDERED: *HR* HYDROmorphone (PF) 1 MG/ML SYRINGE ONE (19:36)
[2019-02-18] MEDS: *HR* HYDROmorphone (PF) 1 MG/ML SYRINGE IVP PRN ×2 (19:38→19:49)
[2019-02-18] MEDS ORDERED: Dextrose Gel 15 GM/37.5 ML TUBE PO PRN ×2 (20:28)
[2019-02-18] MEDS ORDERED: D5% in Water 1,000 ML IVC PRN (20:28)
[2019-02-18] MEDS ORDERED: Ondansetron 4 MG/2 ML VIAL IVP PRN (20:28)
[2019-02-18] MEDS ORDERED: *HR* Dextrose 50 % in Water (Syg) 50 ML SYRINGE IVP PRN (20:28)
[2019-02-18] MEDS ORDERED: Chloraseptic Spray 177 ML BOTTLE MM PRN (22:11)
[2019-02-18] MEDS: Insulin LISPRO 300 UNITS/3 ML VIAL SQ SCH (22:25)
[2019-02-18] MEDS: D5% in 0.45% NACL 1,000 ML IVC SCH (23:41)
[2019-02-19 06:06] LABS: Basophils % 0.2 %; Eosinophils % 0.2 %; Hematocrit 37.9 % (37.5-50.1); Hemoglobin 12.5 g/dL (12.9-16.9); Immature Granulocytes % 0.4 % (0-4); Lymphocytes % 10.7 %; Mean Corpuscular Hemoglobin 28.7 pg (28.0-33.3); Mean Corpuscular Volume 87.1 fL (83.0-100.0); Mean Platelet Volume 10.7 fL (9.4-12.4); Monocytes # 0.7 K/mcL (0.0-1.3); Monocytes % 7.2 %; Neutrophils # 7.5 K/mcL (1.6-8.9); Platelet Count 188 K/mcL (140-400); Red Blood Count 4.35 M/mcL (4.19-5.50); Red Cell Distribution Width 15.5 % (11.5-14.5); Segmented Neutrophils % 81.3 %; White Blood Count 9.2 K/mcL (4.3-11.1)
[2019-02-19 06:20] LABS: BUN/Creatinine Ratio 23 (6-26); Blood Urea Nitrogen 17 mg/dL (8-23); Calcium 8.7 mg/dL (8.6-10.3); Carbon Dioxide 24 mEq/L (23-29); Chloride 101 mEq/L (98-107); Glucose 174 mg/dL (70-105); Osmolality,Calculated 288 (280-300); Potassium 4.4 mEq/L (3.5-5.1); Sodium 136 mEq/L (136-145); eGFR For African Americans > 60 (> 60); eGFR For Non-African Americans > 60 (> 60)
[2019-02-19] MEDS: Insulin LISPRO 300 UNITS/3 ML VIAL SQ SCH ×6 (06:56→22:52)
[2019-02-19] MEDS: Morphine Sulfate 2 MG/ML SYRINGE IVP PRN ×2 (11:42→17:51)
[2019-02-19] MEDS: D5% in 0.45% NACL 1,000 ML IVC SCH (14:28)
[2019-02-19] MEDS: *HR* OxyCODONE Oral Soln 5 MG/5 ML UD.LIQ GTUBE PRN ×2 (14:39→22:27)
[2019-02-20] MEDS: D5% in 0.45% NACL 1,000 ML IVC SCH ×2 (00:09→08:15)
[2019-02-20] MEDS: Insulin LISPRO 300 UNITS/3 ML VIAL SQ SCH ×6 (00:41→22:33)
[2019-02-20] MEDS: Lisinopril 20 MG TABLET PO SCH (11:14)
[2019-02-20] MEDS: *HR* OxyCODONE Oral Soln 5 MG/5 ML UD.LIQ GTUBE PRN (11:15)
[2019-02-20] MEDS: Morphine Sulfate 2 MG/ML SYRINGE IVP PRN ×2 (13:09→21:07)
[2019-02-20] MEDS: *HR* Metformin 500 MG TABLET PO SCH (21:07)
[2019-02-21] MEDS: Morphine Sulfate 2 MG/ML SYRINGE IVP PRN (03:13)
[2019-02-21] MEDS: Insulin LISPRO 300 UNITS/3 ML VIAL SQ SCH ×5 (03:13→17:12)
[2019-02-21] MEDS: *HR* OxyCODONE Oral Soln 5 MG/5 ML UD.LIQ GTUBE PRN ×2 (05:15→13:50)
[2019-02-21] MEDS: *HR* Metformin 500 MG TABLET PO SCH ×2 (09:59→17:12)
[2019-02-21] MEDS: Lisinopril 20 MG TABLET PO SCH (10:00)
[2019-02-21] MEDS ORDERED: Furosemide 40 MG TABLET PO STA (13:06)
[2019-02-21 15:36] VITALS: BP 97/66
== END 2019-02-21 18:43 | disposition home health service (06) | DRG 326 ==
LOC: 3ANU 14:07 → SAMDAY 14:07
PROVIDERS: ADMIT Surgery; ATTEND Surgery

== ENCOUNTER 2019-04-04 14:59 | Observation (INO) ==
[2019-04-04] MEDS ORDERED: Pantoprazole 40 MG VIAL IVP ONE (15:23)
[2019-04-04] MEDS ORDERED: 0.9 % Sodium Chloride 250 ML ONE (15:23)
[2019-04-04] MEDS ORDERED: Morphine Sulfate 2 MG/ML SYRINGE IVP ONE (15:31)
[2019-04-04] MEDS ORDERED: 0.9 % Sodium Chloride 1,000 ML IVC SCH (15:45)
[2019-04-04] MEDS ORDERED: *HR* LORazepam 2 MG/ML VIAL IVP PRN ×2 (16:40→17:10)
[2019-04-04] MEDS ORDERED: Morphine Sulfate 2 MG/ML SYRINGE IVP PRN ×2 (16:40→17:11)
[2019-04-04] MEDS ORDERED: Naloxone 0.4 MG/ML INJ IVP PRN (17:08)
[2019-04-04] MEDS: 0.9 % Sodium Chloride 1,000 ML IVC SCH (18:18)
[2019-04-04] MEDS ORDERED: Haloperidol Lactate 5 MG/ML VIAL IVP PRN (19:24)
[2019-04-05] MEDS: 0.9 % Sodium Chloride 1,000 ML IVC SCH (02:45)
[2019-04-05 08:02] VITALS: BP 137/85
[2019-04-05] MEDS ORDERED: Morphine Sulfate Oral CONC 10 MG/0.5 ML ORAL.SYG SL PRN (10:04)
[2019-04-05] MEDS ORDERED: Haloperidol Oral Conc 10 MG/5 ML UDC PO SCH (10:15)
== END 2019-04-05 11:36 | disposition hospice, inpatient (51) ==
LOC: EMEROOARM 14:59 → 2ANU 14:59 → SUATTDRO 17:17 → 2ANU 18:00
PROVIDERS: ADMIT Internal Medicine; ATTEND Internal Medicine

== ENCOUNTER 2019-04-05 09:58 | Inpatient (IN) ==
[2019-04-05] MEDS ORDERED: Haloperidol Lactate 5 MG/ML VIAL IVP PRN ×2 (11:03→18:58)
[2019-04-05] MEDS ORDERED: Morphine Sulfate Oral CONC 10 MG/0.5 ML ORAL.SYG SL PRN (11:11)
[2019-04-05] MEDS ORDERED: Haloperidol Oral Conc 10 MG/5 ML UDC PO SCH (15:00)
[2019-04-05] MEDS ORDERED: Morphine Sulfate 2 MG/ML SYRINGE IVP PRN (18:56)
[2019-04-05] MEDS ORDERED: *HR* LORazepam 2 MG/ML VIAL IVP PRN (18:58)
[2019-04-05 20:13] VITALS: BP 69/47
== END 2019-04-05 20:14 | disposition expired | DRG 951 ==
LOC: 2ANU 11:37
PROVIDERS: ADMIT Internal Medicine Hospice and Palliative Medicine; ATTEND Internal Medicine Hospice and Palliative Medicine